=== PATIENT | male | born 1980 | race Caucasian/White ===

== ENCOUNTER 2020-11-28 03:33 | Emergency (ER) | payer OTHER ==
[~2020-11-28] VITALS: Ht 167.6 cm; Wt 71.4 kg
[2020-11-28 03:53] VITALS: BP 126/61
[2020-11-28] MEDS ORDERED: IBUPROFEN 600 MG TABLET. PO ONE (04:00)
[2020-11-28] MEDS ORDERED: ACETAMINOPHEN 500 MG TABLET PO ONE (04:00)
--- NOTE | 2020-11-28 04:09 | RAD ---
XR RT WRIST 3VIEWS History: Reason: Right wrist injury, pain / Spl. Instructions: / History: Technique: 3 views right wrist Comparison: None. Findings: No dislocation. No acute fracture. Impression: 1. No acute osseous abnormality. Electronically signed by: Chester Augilar DO (11/28/2020 4:07 AM) [facility]
--- NOTE | 2020-11-28 04:36 | PHYS DOC ---
Past History Past Surgical History: No Surgical History Alcohol Use: None Adult General Chief Complaint Chief Complaint: WRIST PAIN HPI HPI Patient is a 40-year-old male who presents with right wrist pain that he noticed after doing push-ups, 5 out of 10, dull and achy in nature. Denies any other injuries. Review of Systems Review of Systems Review of systems otherwise unremarkable except noted in HPI Current Medications Current Medications Current Medications Medications (Trade) Dose Ordered Sig/Joceline Start Time Stop Time Status Last Admin Dose Admin Acetaminophen (Tylenol) 1,000 mg 1X ONCE 11/28/20 04:00 11/28/20 04:01 DC 11/28/20 04:07 1,000 MG Ibuprofen (Motrin) 600 mg 1X ONCE 11/28/20 04:00 11/28/20 04:01 DC 11/28/20 04:07 600 MG Allergies Allergies Allergies Coded Allergies Type Severity Reaction Last Updated Verified No Known Drug Allergies 11/28/20 No Physical Exam Physical Exam Constitutional: Well developed, well nourished, no acute distress, non-toxic appearance. [] HENT: Normocephalic, atraumatic, Back: No tenderness, Extremities: No tenderness, no cyanosis, no clubbing, ROM intact, no edema. [] Neurologic: Alert and oriented X 3, normal motor function, normal sensory function, no focal deficits noted. [] Psychologic: Affect normal, judgement normal, mood normal. [] Current Patient Data Vital Signs Vital Signs Date Time Temp Pulse Resp B/P (MAP) Pulse Ox O2 Delivery O2 Flow Rate FiO2 11/28/20 03:53 97.5 66 16 126/61 (82) 97 EKG EKG [] Radiology/Procedures Radiology/Procedures [] Heart Score C/O Chest Pain: No Risk Factors: Risk Factors: DM, Current or recent (<one month) smoker, HTN, HLP, family history of CAD, obesity. Risk Scores: Risk Factors: DM, Current or recent (<one month) smoker, HTN, HLP, family his tory of CAD, obesity. Course & Med Decision Making Course & Med Decision Making Patient is 40-year-old male who presents with right wrist pain Vital signs not concerning. Physical exam noted above. Given Tylenol, ibuprofen and ice pack. Imaging with no acute osseous abnormalities Discussed all findings with patient. Advised on symptom control at home Advised to follow-up with primary care as needed. Gave return precautions to the ED. Patient grateful, verbalized understanding and agreed with plan of discharge. Dragon Disclaimer Dragon Disclaimer This electronic medical record was generated, in whole or in part, using a voice recognition dictation system. Departure Departure: Impression: Primary Impression: Wrist pain Disposition: HOME / SELF CARE / HOMELESS Condition: GOOD Referrals: PCP,NO (PCP) AMIE BROWER MD Patient Instructions: RICE - Routine Care for Injuries Additional Instructions: Thank you for coming into the emergency department tonight and allowing us to take care of you. Please read the attached information carefully to go over some of the things we discussed. Please continue to use Tylenol, ibuprofen and ice as needed. Please follow-up with your primary care physician as soon as you can to update on ED visit and set up a follow-up. Please come back to the ED with new or concerning symptoms as discussed. DIANNE IBARRA MD Nov 28, 2020 04:36
== END 2020-11-28 04:41 | disposition home or self-care (01) ==
LOC: ER 03:33
DX: M25.531 Pain in right wrist (principal)
CPT/HCPCS: 73110; 99283